=== PATIENT | female | born 1995 | race African-American/Black ===

== ENCOUNTER → 2019-04-25 | Outpatient (CLI) | payer OTHER | LOC: RAD 09:37 | DX: N63.22 Unspecified lump in the left breast, upper inner quadrant (principal); M54.5 Low back pain ==

== ENCOUNTER → 2019-05-16 | Outpatient (CLI) | payer OTHER ==
[~2019-05-16] MED LIST: CIPRO500 M1 PO; MELOXICAM15 MG PO; PROAIR HFA8.5 GM INH; SERTRALINE HCL50 MG PO; TRAZODONE HCL50 MG PO
== END ==
LOC: ULTRA 05-09 10:12
DX: E04.9 Nontoxic goiter, unspecified (principal)

== ENCOUNTER 2019-05-30 15:03 | Emergency (ER) | payer OTHER ==
[~2019-05-30] VITALS: Ht 167.6 cm; Wt 99.3 kg
[2019-05-30] MEDS ORDERED: MELOXICAM15 MG PO (15:21)
[2019-05-30] MEDS ORDERED: CIPRO500 M1 PO (15:21)
[2019-05-30] MEDS ORDERED: SERTRALINE HCL50 MG PO (15:21)
[2019-05-30] MEDS ORDERED: TRAZODONE HCL50 MG PO (15:22)
[2019-05-30] MEDS ORDERED: PROAIR HFA8.5 GM INH (15:22)
[2019-05-30 15:55] LABS: URINE BILIRUBIN NEGATIVE (Negative); URINE BLOOD NEGATIVE (Negative); URINE CLARITY CLEAR; URINE COLOR YELLOW; URINE GLUCOSE-RANDOM* NEGATIVE (Negative); URINE KETONES NEGATIVE (Negative); URINE LEUKOCYTES-REFLEX NEGATIVE (Negative); URINE NITRITE-REFLEX NEGATIVE (Negative); URINE PROTEIN (DIPSTICK) NEGATIVE (Negative); URINE SPECIFIC GRAVITY >= 1.030 (1.005-1.035); URINE UROBILINOGEN 0.2 E.U./dl (0.2-1.0)
[2019-05-30 16:05] LABS: AMP/METHAMP Negative (Negative); BARBITURATES Negative (Negative); BENZODIAZEPINES Negative (Negative); COCAINE Negative (Negative); METHADONE Negative (Negative); OPIATES Negative (Negative); PCP Negative (Negative)
[2019-05-30 16:33] LABS: ABSOLUTE NEUTROPHILS 6.7 thou/uL (1.4-8.2); BASOPHILS 0.7 % (0.0-2.0); EOSINOPHILS 0.8 % (0.0-3.0); HEMATOCRIT 36.4 % (37.0-47.0); HEMOGLOBIN 11.4 gm/dL (12.0-15.0); LYMPHOCYTES 25.3 % (24.0-44.0); MCH 22.3 pg (26.0-34.0); MCHC 31.4 g/dL (28.0-37.0); MONOCYTES 4.4 % (1.0-8.0); PLATELET COUNT 278 thou/uL (150-400); POLYS 68.8 % (36.0-66.0); RBC 5.13 mil/uL (4.20-5.00); RDW 14.1 % (10.5-14.5); WBC 9.7 thou/uL (4.0-11.0)
[2019-05-30 16:40] LABS: ANION GAP 10 mmol/L (7-16); BUN 11 mg/dL (7-18); CALCIUM 9.2 mg/dL (8.5-10.1); CHLORIDE 108 mmol/L (98-107); CO2 22 mmol/L (21-32); GLUCOSE 97 mg/dL (74-106); SODIUM 140 mmol/L (136-145)
[2019-05-30 16:46] LABS: ALBUMIN 3.4 g/dL (3.4-5.0); SALICYLATE < 2.8 mg/dL (2.8-20.0); SGOT 16 U/L (15-37); SGPT 20 U/L (30-65); TOTAL BILIRUBIN < 0.1 mg/dL (<0.1-1.0); TOTAL PROTEIN 7.9 g/dL (6.4-8.2)
[2019-05-31 01:33] VITALS: BP 137/71
== END 2019-05-31 01:30 ==
LOC: ER 15:03
PROVIDERS: Physician Assistant
DX: F32.9 Major depressive disorder, single episode, unspecified (principal); R45.851 Suicidal ideations; F41.9 Anxiety disorder, unspecified; J45.909 Unspecified asthma, uncomplicated; G43.909 Migraine, unspecified, not intractable, without status migrainosus; F17.210 Nicotine dependence, cigarettes, uncomplicated; F12.90 Cannabis use, unspecified, uncomplicated; Z79.899 Other long term (current) drug therapy